=== PATIENT | male | born 2000 | race Caucasian/White ===

== ENCOUNTER 2024-07-16 17:27 | Emergency (ER) | payer MEDICAID, SELFPAY ==
--- NOTE | ~2024-07-16 | XR_ITS ---
EXAMINATION: XR CHEST CLINICAL INFORMATION: Pain COMPARISON: None available. TECHNIQUE: 2 views of the chest were obtained. FINDINGS: No significant abnormality is noted involving the heart, lungs, mediastinum, bony thorax or soft tissues. XR/XR chest 2V IMPRESSION: Unremarkable examination. Electronically signed by: Alycia Jose MD 07/16/2024 06:16 PM EDT RP
[2024-07-16 17:42] VITALS: BP 141/76; PULSE 60; RESP 18; TEMP 35.8; O2SAT 98; BMI 29.1
--- NOTE | 2024-07-16 17:42 | ED.GENADULT ---
HPI - General Adult General Chief complaint: General Medical Stated complaint: right side rib pain Time Seen by Provider: 07/16/24 18:40 Source: patient, RN notes reviewed and old records reviewed Mode of arrival: ambulatory Limitations: no limitations History of Present Illness ED Provider: Evert BALDWIN narrative: 23-year-old male who denies any past medical history presents for evaluation of right-sided chest pain. His pain started last night in his worse with movement or deep breathing. Denies any abdominal pain, nausea vomiting pain Denies any cough, fevers, chills Denies any trauma to the chest. He reports his pain is significantly improved today but still present with deep breathing Denies any recent travel Related Data Previous Rx's ?Medication ?Instructions ?Recorded ibuprofen 600 mg tablet 600 mg PO Q6H PRN pain #20 tabs 07/16/24 Allergies Allergy/AdvReac Type Severity Reaction Status Date / Time No Known Allergies Allergy Verified 07/16/24 17:43 Review of Systems Constitutional: Constitutional: Denies body ache(s), Denies chills and Denies fever(s) Eyes: Eyes: Denies blurry vision Cardiovascular: Cardiovascular: Reports chest pain and Denies dyspnea Respiratory: Respiratory: Denies cough, Reports pain on inspiration and Denies dyspnea Gastrointestinal: Gastrointestinal: Denies abdominal pain, Denies nausea and Denies vomiting Musculoskeletal: Musculoskeletal: Denies back pain Integumentary/Breasts: Skin/Breast: Denies rash Psychiatric: Psychiatric: Denies anxiety PMFSH Social History Social History Advance Directives: No Advance Directives Information Provided: Yes Physical Exam ED Vital Signs: Vital Signs - 24 hr 07/16/24 17:42 Temperature 96.4 F L Pulse Rate 60 Respiratory Rate 18 Blood Pressure 141/76 H Pulse Oximetry 98 Oxygen Delivery Method Room Air BMI result Body Mass Index 29.1 Const General: healthy appearing, comfortable, no acute distress, alert and awake Nutritional Appearance: well nourished Orientation/consciousness: patient oriented x3 HENMT Head: Yes normocephalic and Yes atraumatic Eyes Eyelids: Yes eyelids normal Conjunctivae: conjunctivae normal Sclerae: sclerae normal Corneas: corneas normal Pupils: Equal, round and reactive pupils present EOM: EOMs intact bilaterally Neck Neck: Yes full ROM Chest Chest palpation & inspection: normal inspection of the chest, normal palpation of entire chest wall and no crepitus Resp Effort & Inspection: normal respiratory effort, able to speak in complete sentences, no audible wheezes and not labored Auscultation: clear to auscultation bilaterally Cardio Rate: regular rate Rhythm: regular rhythm GI Inspection: No distended Palpation (GI): Soft to palpation, not firm, nontender, no guarding and not rigid Skin General skin exam: elasticity normal Neuro General: patient oriented x3 Cranial nerves: Yes Equal, round and reactive pupils present and Yes Bilaterally intact EOM present Cognition (Neuro): normal cognition Extrem Other: Moving all extremities well without any obvious deformities Course Course Course Narrative: RME, this is a rapid medical exam performed by Nishant Loyd please refer to primary provider for complete H&P- 23-year-old male presents for evaluation of right-sided chest pain. His symptoms started last night. Denies any trauma, heavy lifting or twisting injuries. Denies any associated cough, fevers, chills, shortness of breath. Plan for chest x-ray. The patient has no abdominal tenderness on exam. Medical Decision Making Medical Decision Making MDM Narrative: 23-year-old male presents for evaluation of right-sided chest wall pain. His pain is worse with deep inspiration and movement. He has no abdominal pain or tenderness. Less likely biliary disease. A chest x-ray was ordered to evaluate for pneumonia/pneumothorax. Chest x-ray shows no acute pathology. He has no risk factors for PE/ACS. Vital signs are stable. Pain is most likely chest wall pain. Will treat symptomatically. Discussed with the patient, he is for discharge Differential Diagnosis Differential Diagnoses: The differential diagnosis associated with the presentation includes Atypical chest pain Chest wall pain Costochondritis Pneumonia Pneumothorax Muscle strain Radiology Impression Discussion of test interpretation with radiology: I have reviewed the radiologist's reading. Radiologist Impression: FINDINGS: No significant abnormality is noted involving the heart, lungs, mediastinum, bony thorax or soft tissues. XR/XR chest 2V IMPRESSION: Unremarkable examination. Electronically signed by: Alycia Jose MD 07/16/2024 06:16 PM EDT Discharge Plan Discharge Clinical Impression: Right-sided chest wall pain Patient Disposition: Home, Self-Care Instructions: Chest Wall Pain (ED) Additional Instructions: Your x-ray was normal today. Your pain is most likely related to a muscle strain or inflammation of your ribs. The treatment is ibuprofen or Tylenol. Follow-up with your doctor, return for new or worsening symptoms Prescriptions: New ibuprofen 600 mg tablet 600 mg PO Q6H PRN (Reason: pain) Qty: 20 0RF Print Language: Djiboutian
[2024-07-16 19:30] VITALS: BP 141/76; PULSE 60; RESP 18; TEMP 35.8; O2SAT 98
== END 2024-07-16 19:31 | disposition home or self-care (01) ==
PROVIDERS: Emergency Provider Emergency Medicine
DX: R07.89 Other chest pain (principal)
CPT/HCPCS: 71046; 99282; 99283

== ENCOUNTER 2025-04-18 11:59 | Emergency (ER) | payer MEDICAID, SELFPAY ==
[2025-04-18 12:01] VITALS: BP 141/63; PULSE 68; RESP 18; TEMP 36.6; O2SAT 98; BMI 30.5
--- NOTE | 2025-04-18 12:01 | ED.ALLEREA ---
HPI - Allergic Reaction General Chief complaint: Allergic Reaction Stated complaint: Allergic reaction, rash/ bump, swollen lips Time Seen by Provider: 04/18/25 13:31 History of Present Illness ED Provider: Kamila BALDWIN narrative: The patient is a 24-year-old male who has been having problems with an itchy rash on his arms and trunk since yesterday. Additionally he has had some pain in a tooth on his right jaw for which he used Orajel last night and this morning he felt that his lower lip was mildly swollen. He has not felt any shortness of breath. No difficulty swallowing. No tongue swelling. No throat tightness. The patient does not think that he has had any exposures to poison mina. No fever, sweats, chills. No abdominal pain, nausea, vomiting. Related Data Previous Rx's ?Medication ?Instructions ?Recorded ibuprofen 600 mg tablet 600 mg PO Q6H PRN pain #20 tabs 07/16/24 famotidine 40 mg tablet 40 mg PO DAILY PRN allergic 04/18/25 symptoms #10 tabs loratadine 10 mg tablet (Claritin) 10 mg PO DAILY PRN allergic 04/18/25 symptoms #10 tabs prednisone 10 mg tablet 10 mg PO DIRECTED #21 tabs 04/18/25 Allergies Allergy/AdvReac Type Severity Reaction Status Date / Time No Known Allergies Allergy Verified 04/18/25 12:05 Review of Systems Review of Systems: Yes all other systems are reviewed and are negative ON LICENSE OF [facility] Social History Social History Advance Directives: No Advance Directives Information Provided: Yes Do you have a plan to hurt others: No Plan Physical Exam ED Vital Signs: Vital Signs - 24 hr 04/18/25 12:01 04/18/25 14:15 Temperature 98 F 97.8 F Pulse Rate 68 64 Respiratory Rate 18 16 Blood Pressure 141/63 H 130/71 Pulse Oximetry 98 98 Oxygen Delivery Method Room Air Room Air BMI result Body Mass Index 30.5 Const Other: The patient looks as though he is an ordinarily healthy and athletic 24-year-old. He does not appear in acute distress. Orientation/consciousness: patient oriented x3 HENMT Other: There may be some minimal swelling to the lower lip but this is very subtle. He has a broken right jaw premolar but there is no associated gingival swelling. No trismus. No facial asymmetry. No soft tissue swelling aside from very subtle, minimal lower lip swelling. Eyes Other: Pupils are round equal, conjunctivae are clear, extraocular movements intact Neck Other: Moving his neck easily. No stridor. No swelling. No adenopathy. Neck is benign. Resp Other: No wheezing Effort & Inspection: normal respiratory effort Auscultation: clear to auscultation bilaterally Cardio Rate: regular rate Rhythm: regular rhythm Heart sounds: S1 normal heart sound present and S2 normal heart sound present Skin Other: The patient has multiple areas of rash on his arms and in the left axilla and somewhat behind the left ear. These are patches of mildly erythematous skin which is slightly elevated and bumpy but not frankly vesicular. Neuro General: patient oriented x3, gait normal, tone normal, moves all extremities, no focal motor deficits and CN's II-XI intact bilaterally Extrem Other: The patient has skin lesions on his forearms and upper arms consistent with dermatitis but the extremities are otherwise unremarkable. Course Course Course Narrative: This is an RME performed by Partha Wood CNP: Additional HPI, ROS, PE not included below will be deferred to primary provider. Patient is a 24-year-old mentions emergency department for evaluation. He reports that he is concern for an allergic reaction. Yesterday he used Orajel to the right lower teeth due to a toothache. He noticed that he soon after developed small red itchy bumps to his arms torso and face. This proceeded throughout this morning. He took Benadryl 1 hour prior to arrival, however he noticed that he has since developed swelling to the lower lip. Does not have a throat closing sensation or swelling to the tongue. No shortness of breath. Localized swelling to the lower lip otherwise without signs of angioedema, no respiratory distress, LSCTA, scattered maculopapular rash noted to arms. No hypoxia Medications Administered Discontinued Medications Generic Name Dose Route Start Last Admin Trade Name Freq PRN Reason Stop Dose Admin Famotidine 40 mg 04/18/25 13:55 04/18/25 14:15 Famotidine 20 Mg Tablet PO 04/18/25 13:56 40 mg ONCE ONE Administration Prednisone 60 mg 04/18/25 13:55 04/18/25 14:15 Prednisone 20 Mg Tablet PO 04/18/25 13:56 60 mg ONCE ONE Administration Medical Decision Making Medical Decision Making MDM Narrative: The patient has a rash on his arms, left axilla, and behind the left ear which strongly resembles the rash a poison mina. The patient is quite certain he has not had any poison mina exposure however. I suspect this is some kind of contact dermatitis nevertheless. He has some minimal lower lip swelling of uncertain significance. It would be strange of this was also an allergic reaction from the Orajel he used. I think the lip swelling is probably a different phenomenon than the skin manifestation elsewhere. He has no respiratory or airway involvement. The patient will be started on prednisone and discharged on a taper. Also prescriptions for loratadine and famotidine. He should return if worse. Discharge Plan Discharge Clinical Impression: Contact dermatitis Patient Disposition: Home, Self-Care Instructions: Contact Dermatitis (ED) Additional Instructions: I think you have some kind of an allergic reaction that is something like poison mina. Please take the medications prescribed. Take your next dose of prednisone tomorrow (you received a dose here today). You may also take loratadine and famotidine daily as well. At night you may add Benadryl if you are very itchy. Benadryl can make you very sleepy. Please work on getting a primary care doctor. You has been provided with contact information for several primary care offices. Return to the emergency room if significantly worse. Prescriptions: New prednisone 10 mg tablet 10 mg PO DIRECTED Qty: 21 0RF Rx Instructions: Take 6 tablets by mouth daily for 1 day, then 5 tabs by mouth daily for 1 day, then 4 tabs by mouth daily for 1 day, continue 1 less per day until done. famotidine 40 mg tablet 40 mg PO DAILY PRN (Reason: allergic symptoms) Qty: 10 0RF loratadine [Claritin] 10 mg tablet 10 mg PO DAILY PRN (Reason: allergic symptoms) Qty: 10 0RF No Action ibuprofen 600 mg tablet 600 mg PO Q6H PRN (Reason: pain) Qty: 20 0RF Referrals: [facility] [Provider Group] [facility] [place] [Provider Group, Internal Medicine] [facility], [place] [Provider Group, Internal Medicine] [facility] [place], [facility] [Provider Group, Primary Care] Shelby Bobo MD [Physician, Internal Medicine] Interventions: ED Discharge Assessment Last Done: 04/18/25 14:15 Discharge Date/Time: 04/18/25 14:16 Print Language: Swiss
[2025-04-18 14:15] VITALS: BP 130/71; PULSE 64; RESP 16; TEMP 36.6; O2SAT 98
== END 2025-04-18 14:16 | disposition home or self-care (01) ==
PROVIDERS: Emergency Provider Emergency Medicine
DX: L23.9 Allergic contact dermatitis, unspecified cause (principal); R21 Rash and other nonspecific skin eruption
CPT/HCPCS: 99282; 99283

== ENCOUNTER 2025-04-22 22:16 | Emergency (ER) | payer MEDICAID, SELFPAY ==
[2025-04-22 22:40] VITALS: BP 137/62; PULSE 68; RESP 18; TEMP 36.5; O2SAT 97; BMI 31.8
[2025-04-22 23:04] LABS: Hematocrit 41.7 % (42.0-52.0); Hemoglobin 14.7 g/dl (14.0-18.0); Imm Gran Abs Auto 0.09 X10*3/uL (0.00-0.03); Imm Gran Pct Auto 0.8 % (0.0-0.4); Lymphocytes Absolute Auto 1.6 X10*3/uL (1.2-4.9); MANUAL DIFF FLAG NO; Mean Corpuscular HGB Conc 35.3 g/dl (31.0-36.0); Mean Corpuscular Hemoglobin 30.8 pg (27.0-33.0); Mean Corpuscular Volume 87.4 fL (80.0-98.0); NRBC Abs Auto 0.000 X10*3/uL (0.0-0.012); NRBC Pct Auto 0.0 /100WBC (0.0-0.2); Platelet Count 229 X10*3/uL (160-400); Red Blood Count 4.77 X10*6/uL (4.60-5.80); White Blood Count 11.0 X10*3/uL (4.8-10.8)
[2025-04-22 23:22] LABS: Alanine Aminotransferase 105 U/L (0-40); Albumin Level 4.6 g/dL (3.5-5.0); Alkaline Phosphatase 83 U/L (39-117); Anion Gap 10 (12-20); Aspartate Amino Transferase 45 U/L (5-37); Blood Urea Nitrogen 14 mg/dL (9-16); Calcium 9.4 mg/dL (8.4-10.2); Carbon Dioxide 29 mmol/L (22-29); Chloride 104 mmol/L (96-108); Creatinine Clr Calc Pharmacy 154.4; Estimated Glomerular Filt Rate > 60; Potassium 4.4 mmol/L (3.3-5.1); Sodium 139 mmol/L (135-145); Total Protein 7.3 g/dL (6.5-8.0)
[2025-04-22 23:42] LABS: Resp Syncy Virus RNA Qual PCR NEGATIVE (Negative); SARS COV2 PCR INHOUSE NEGATIVE (Negative)
--- OUTSIDE RECORDS SUMMARY | 2025-04-23 00:29 | XMS_ITS | Clinical Summary ---
Author Organization [employer] Address [address] [place] [address] Care Team Providers Care State Assessed Properties Director Name Role Phone Unavailable Primary Care Provider Unavailabl e Encounters Date Type Department Care Team Description 04/06/2025 Population Health Risk Score [facility] (C[facility]) Department [address] [place] [address] Provider, Population Health Generic from Last 3 Months Social History Tobacco Use Types Packs/Day Years Used Date Smoking Tobacco: Never Assessed Sex and Gender Information Value Date Recorded Sex Assigned at Not on file Legal Sex Male 9:27 PM EDT Gender Identity Not on file Sexual Orientation Not on file Plan of Treatment Health Maintenance Due Date Last Done Comments Depression Screening 1998 HIV Screening 1998 SDOH Screening 1998 Disability Screening 1998 Alcohol/Substance Use Screening 2010 Tobacco Screening 2010 Family Planning (PISQ) 2013 HPV Vaccines (1 - Male 3-dos e series) 2013 Hepatitis C Screening 2016 DTaP/Tdap/Td Vaccines (1 - Tdap) 2017 Hepatitis B Vaccines (1 of 3 - 19+ 3-dose series) 2017 COVID-19 Vaccine (1 - 2023-2 5 season) 2024 Influenza Vaccine (#1) 2025 Zoster Vaccines (1 of 2) 2048 RSV Patients and Pa tients Aged 60 years or older (1 - 1-dose 75+ series) 2073 HIB Vaccines Aged Out No longer eligi ble based on patient's age to complete this topic Hepatitis A Vaccines Aged Out No long er eligible based on patient's age to complete this topic IPV Vaccines Aged Out No longer eligi ble based on patient's age to complete this topic Meningococcal B Vaccine Aged Out No l onger eligible based on patient's age to complete this topic Meningococcal Vaccine Aged Out No gerda terrell eligible based on patient's age to complete this topic Pneumococcal Vaccine: Pediat rics (0 to 5 Years) and At-Risk Patients (6 to 49) Years Aged Out No longer eligible b ased on patient's age to complete this topic RSV under 20 months Aged Out No longe r eligible based on patient's age to complete this topic Rotavirus Vaccines Aged Out No longer eligible based on patient's age to complete this topic
--- OUTSIDE RECORDS SUMMARY | 2025-04-23 00:29 | XMS_ITS | Clinical Summary ---
Author Organization [facility] Address [address] [place] [address] Care Team Providers Care Student Affairs Vice President Name Role Phone Unavailable Primary Care Provider Unavailabl e Source Comments PLEASE NOTE, if this patient is a minor, it may be UNLAWFUL to discuss sensitive information that is contained in these records (such as FAMILY PLANNING, MENTAL HEALTH or SUBSTANCE ABUSE) with the minor patient's parent or other person without the patient's specific authorization.[facility] Allergies No known active allergies Family History Medical History Relation Name Comments Unknown Brother x 1 Unknown Father domestic violence Mother Relation Name Status Comments Brother x 1 Alive Father Alive Mother Social History Tobacco Use Types Packs/Day Years Used Date Smoking Tobacco: Never Smokeless Tobacco: Never Tobacco Cessation:Counseling Given: Not Answered Alcohol Use Standard Drinks/Week Comments Not Currently 0 (1 standard drink = 0.6 oz pur e alcohol) Social Connections Answer Date Recorded Connectedness 0 08/25/2024 Financial Resource Strain Answer Date R ecorded Financial Resource Strain 0 2023 Stress Answer Date Recorded Stress 0 08/25/2024 Physical Activity Answer Date Recorded Physical Activity 0 08/25/2024 Food Insecurity Answer Date Recorded Food 0 08/25/2024 Transportation Needs Answer Date Record ed Transportation 0 08/25/2024 Housing Stability Answer Date Recorded Housing 0 08/25/2024 Safety and Environment Answer Date Aubrey rded Safety 0 08/25/2024 Utilities Answer Date Recorded Utilities 0 08/25/2024 Employment Answer Date Recorded Stress 0 08/25/2024 Sex and Gender Information Value Date Recorded Sex Assigned at Male 08/26/2024 10:16 AM PST Legal Sex Male 10:03 AM PDT Gender Identity Male 08/26/2024 10:16 AM PST Sexual Orientation Straight 08/26/2024 10 :16 AM PST Last Filed Vital Signs Vital Sign Reading Time Taken Comments Blood Pressure 120/86 08/25/2024 4:53 PM EST Pulse 64 08/25/2024 4:53 PM EST Temperature 36.7 C (98 F) 08/25/2024 4:53 PM EST Respiratory Rate 16 08/25/2024 4:53 PM EST Oxygen Saturation 99% 08/25/2024 4:53 PM EST Inhaled Oxygen Concentration - - Weight 91.6 kg (202 lb) 08/25/2024 4:53 PM EST Height 172.7 cm (5' 8 ) 08/25/2024 4:53 PM EST Body Mass Index 30.71 08/25/2024 4:53 PM EST Plan of Treatment Health Maintenance Due Date Last Done Comments Hepatitis C Screening 1998 Lipid Screening 1998 HIV Screening 2013 Imm-HPV (1 - Male 3-dose series) 2013 Imm-DTaP/Tdap/Td (1 - Tdap) 2017 Imm-Hepatitis B (1 of 3 - 19+ 3-dose series) 7 [id number] () 05/17/2024 Alcohol and Drug Screen 09/16/2024 08/25/2024 Depression Monitoring 11/23/2024 08/25/2024 Imm-Influenza (#1) 2025 Anxiety Screening 08/25/2025 08/25/2024 Hypertension Screening (#1) 08/25/2025 Tobacco Screening 08/25/2025 08/25/2024
== END 2025-04-23 00:32 | disposition left against medical advice (07) ==
LOC: HO.ED 04-23 00:27
PROVIDERS: Emergency Provider Emergency Medicine
DX: K30 Functional dyspepsia (principal); Z53.21 Procedure and treatment not carried out due to patient leaving prior to being seen by health care provider
CPT/HCPCS: 80053; 85025; 87637; 99281

== ENCOUNTER 2025-05-02 10:39 | Emergency (ER) | payer MEDICAID, SELFPAY ==
[2025-05-02 11:22] VITALS: BP 151/63; PULSE 76; RESP 15; TEMP 36.2; O2SAT 98; BMI 31.6
--- NOTE | 2025-05-02 11:29 | ED_ITS ---
HPI - General Adult General Chief complaint: Dental/Oral Stated complaint: Dental Pain Time Seen by Provider: 05/02/25 11:30 Source: patient Limitations: no limitations History of Present Illness HPI narrative: 24-year-old male with pain to the left upper dentition. Patient states he feels as though his face has been swollen over the past several days. Symptoms have been going on for approximately 1 week. He has tried [id number] medication with minimal relief. He has been unable to see his dentist. He denies any fevers chills nausea or vomiting. Related Data Previous Rx's ?Medication ?Instructions ?Recorded famotidine 40 mg tablet 40 mg PO DAILY PRN allergic 04/18/25 symptoms #10 tabs loratadine 10 mg tablet (Claritin) 10 mg PO DAILY PRN allergic 04/18/25 symptoms #10 tabs prednisone 10 mg tablet 10 mg PO DIRECTED #21 tab s 04/18/25 clindamycin HCl 300 mg capsule 300 mg PO Q6H #28 caps 05/02/25 (Cleocin HCl) naproxen 500 mg tablet 500 mg PO BID PRN pain 7 day s #14 05/02/25 tabs Allergies Allergy/AdvReac Type Severity Reaction Status Date / Time No Known Allergies Allergy Verified 05/02/25 11:23 Review of Systems ENT: Denies mouth pain, Denies nasal congestion and Denies nasal discharge PMFSH Social History Social History Advance Directives: No Advance Directives Information Provided: No Do you have a plan to hurt others: No Plan Physical Exam ED Vital Signs: Vital Signs - 24 hr 05/02/25 11:22 05/02/25 11:44 Temperature 97.2 F 97.2 F Pulse Rate 76 76 Respiratory Rate 15 15 Blood Pressure 151/63 H 151/63 H Pulse Oximetry 98 98 Oxygen Delivery Method Room Air Room Air BMI result Body Mass Index 31.6 HENMI Other: Oropharynx is moist. No tongue elevation or edema. No soft tissue swelling of the face. Teeth are in fair repair. Tooth in the area 15. And 16 are intact. No tenderness to tapping. No evidence of drainable abscess. Neck Other: No lymphadenopathy Medical Decision Making Medical Decision Making MDM Narrative: 24-year-old male with left upper dental pain. Concerning for underlying infection. No evidence of drainable abscess. Antibiotics and analgesia. He will follow up with dentist. Additional resources provided. No further questions at this time. Differential Diagnosis Differential Diagnoses: The differential diagnosis associated with the presentation includes Dental abscess Dental caries Broken dentition Gingivitis Discharge Plan Discharge Clinical Impression: Dental caries, Toothache Patient Disposition: Home, Self-Care Instructions: Toothache (ED) Additional Instructions: Clindamycin as directed. Finish all antibiotics. Naproxen as directed for pain. Take with food. Warm water and salt rinses. Follow up with dental referral, call to schedule appointment. Follow-up with your primary care provider. Call this week to schedule a follow- up appointment. Return to the emergency department if you have any worsening of symptoms, or any concerns. Get well soon! Prescriptions: New clindamycin HCl [Cleocin HCl] 300 mg capsule 300 mg PO Q6H Qty: 28 0RF naproxen 500 mg tablet 500 mg PO BID PRN (Reason: pain) 7 Days Qty: 14 0RF Rx Instructions: Take with food. Discontinued ibuprofen 600 mg tablet 600 mg PO Q6H PRN (Reason: pain) Qty: 20 0RF No Action prednisone 10 mg tablet 10 mg PO DIRECTED Qty: 21 0RF Rx Instructions: Take 6 tablets by mouth daily for 1 day, then 5 tabs by mouth daily for 1 day, then 4 tabs by mouth daily for 1 day, continue 1 less per day until done. famotidine 40 mg tablet 40 mg PO DAILY PRN (Reason: allergic symptoms) Qty: 10 0RF loratadine [Claritin] 10 mg tablet 10 mg PO DAILY PRN (Reason: allergic symptoms) Qty: 10 0RF Interventions: ED Discharge Assessment Last Done: 05/02/25 11:44 Discharge Date/Time: 05/02/25 11:45 Print Language: Icelandic
--- NOTE | 2025-05-02 11:41 | PC.NURSE ---
pt discharged from by provider.
[2025-05-02 11:44] VITALS: BP 151/63; PULSE 76; RESP 15; TEMP 36.2; O2SAT 98
== END 2025-05-02 11:45 | disposition home or self-care (01) ==
PROVIDERS: Emergency Provider Emergency Medicine; PCP Dentist General Practice
DX: K02.9 Dental caries, unspecified (principal); K08.89 Other specified disorders of teeth and supporting structures
CPT/HCPCS: 99282; 99283